=== PATIENT | male | born 1965 | race Caucasian/White ===

== ENCOUNTER 2024-02-25 22:05 | Inpatient (IN) | payer BC, SELFPAY ==
[2024-02-25] VITALS (17 sets, daily range): BP systolic 104–126; BP diastolic 62–82; BMI 30.8
[2024-02-25 18:08] LABS: % Basophils 0.5 % (0-2); % Eosinophils 2.6 % (0-6); % Immature Granulocytes 0.4 % (0-0.5); % Lymphocytes 35.7 % (20.5-51.1); % Monocytes 7.7 % (1.7-9.3); % Neutrophils 53.1 % (42.2-75.2); Absolute Eosinophils 0.2 10^3/uL (0-0.7); Absolute Lymphocytes 2.8 10^3/uL (1.2-3.4); Absolute Monocytes 0.6 10^3/uL (0.1-0.6); Absolute Neutrophils 4.2 10^3/uL (1.4-6.5); Hematocrit 40.7 % (39.0-52.0); Hemoglobin 14.4 g/dL (13.0-18.0); Mean Corp Hgb Conc. 35.4 g/dL (33.0-37.0); Mean Corpuscular Hgb 32.3 pg (27.0-31.0); Mean Corpuscular Volume 91.3 fL (80.0-94.0); Mean Platelet Volume 8.8 fL (7.4-10.4); Nucleated Red Blood Cells % 0 % (-); Platelet Count 310 10^3/uL (130-400); Red Blood Cell Count 4.46 10^6/uL (4.70-6.10); White Blood Cell Count 7.8 10^3/uL (4.8-10.8)
[2024-02-25 18:21] LABS: ALT (SGPT) 39 U/L (0-50); AST (SGOT) 30 U/L (17-59); Albumin 4.6 g/dl (3.5-5.0); Alkaline Phosphatase 65 U/L (38-126); Blood Urea Nitrogen 17 mg/dl (9-20); Calcium 9.4 mg/dl (8.4-10.2); Carbon Dioxide 24 mmol/L (22-30); Chloride 105 mmol/L (98-107); Estimated Creatinine Clearance 118 ml/min; Glucose 128 mg/dl (70-99); Potassium 4.1 mmol/L (3.5-5.1); Sodium 139 mmol/L (135-145); Total Bilirubin 0.6 mg/dl (0.2-1.3); Total Protein 7.3 g/dl (6.3-8.2); eGFR > 60.00
[2024-02-25 18:31] LABS: Troponin I < 0.012 ng/ml
--- NOTE | 2024-02-25 18:36 | ED.GENMED ---
History of Present Illness
General
Chief Complaint: Chest Pain
Source: patient and ambulance crew
Exam Limitations: none
Time Seen by Provider: 02/25/24 17:55
Travel History
Have you had any contact with someone who has COVID-19?: No
Do you have any symptoms of coronavirus? Fever > 100 degrees, chills, cough, shortness of breath, sore throat, loss of taste or smell, muscle aches, or headache?: No
History of Present Illness
History of Present Illness:
58-year-old male who presents with upper chest pain that began an hour prior to arrival while he was picking up cones at work. Patient had been given nitroglycerin prior to arrival by EMS but patient reports had no relief. Patient was also given
aspirin. Patient states he does have a history of stents and it does feel similar to prior coronary events. Patient admits that he was very diaphoretic prior to arrival. Patient denies pain in the back. Denies pain in the arms. Is on aspirin at
home and has not missed his medications.
Past History
Past History
ED Past Medical History: CAD, NIDDM and [place]
ED Past Surgical History: Cardiac
Social History
Tobacco: Non-smoker
Alcohol: Occasional
Family History
Family History: Diabetes and CAD
Phy Exam
Physical Exam
Physical Exam:
CONSTITUTIONAL Patient alert and oriented to person, place and time. Well-appearing. Vital signs reviewed.
HEAD atraumatic, normocephalic.
EYES eyelids normal to inspection, Pupils equally round and reactive to light, Extraocular muscles intact, Conjunctiva normal, Sclera normal.
NECK normal range of motion, Trachea midline, no jugular venous distention.
RESPIRATORY CHEST No respiratory distress noted, Chest expansion equal, Bilateral breath sounds clear.
CARDIOVASCULAR regular rate and rhythm, Heart sounds normal.
ABDOMEN abdomen nontender, Bowel sounds normal. No distention.
BACK normal inspection, no obvious deformities
UPPER EXTREMITY range of motion normal, Motor strength normal, no cyanosis, no edema.
LOWER EXTREMITY range of motion normal, Motor strength normal, no cyanosis, no edema.
NEURO Speech normal, No focal motor deficits, Ginette coma scale 15, Memory normal, Cranial Nerves intact to screening exam.
SKIN skin warm, dry, and normal in color.
Scores
Heart Score for Chest Pain Patients
STEMI patient?: Yes
Course
Orders/Labs/Results
Orders:
Orders
02/25/24 Dinner
Cholesterol Lowering
At Your Request: Full Participation
Cholesterol Lowering: Sodium, 2 Gram
02/25/24 17:50
CXR Port [CR Chest Portable - 1 View] Urgent
Comment:
Reason For Exam: chest pain
Reason Study Needs to be Portable: Unable to Transport
02/25/24 17:58
CMP [Comprehensive Metabolic Panel] Urgent
Complete Blood Count/With Diff Urgent
PT/INR [Prothrombin Time] Urgent
PTT Urgent
Troponin I Urgent
02/25/24 18:06
Electrocardiogram (*1) Urgent
Reason for Study: Chest Pain
EKG- Treatment ONCE
02/25/24 18:18
Heparin 5,000 units .ROUTE .STK-MED ONE
Ticagrelor [Brilinta] 180 mg .ROUTE .STK-MED ONE
02/25/24 18:20
EKG [Electrocardiogram (*1)] Urgent
Reason for Study: Chest Pain
EKG- Treatment ONCE
02/25/24 18:24
Morphine Sulfate 4 mg .ROUTE .STK-MED ONE
02/25/24 18:49
Fentanyl Citrate/Pf [Sublimaze] 100 mcg .ROUTE .STK-MED ONE
Heparin 10,000 units .ROUTE .STK-MED ONE
Heparin 1000 Units/500 ml [Heparin] 1,000 units in 500 ml .ROUTE .STK-MED
Heparin Sodium,Porcine/Ns/Pf [Heparin 2000 Units/1000 ml] 2,000 unit in 1,000 ml .ROUTE .STK-MED
Lidocaine HCl/Pf [Xylocaine-Mpf 1% Vial] 100 mg .ROUTE .STK-MED ONE
Midazolam HCl [Versed] 2 mg .ROUTE .STK-MED ONE
Nitroglycerin [Tridil] 1,500 mcg .ROUTE .STK-MED ONE
Verapamil Injectable [Isoptin/Verapamil Injection] 5 mg .ROUTE .STK-MED ONE
02/25/24 19:00
Heparin 1000 Units/500 ml [Heparin] 1,000 units in 500 ml .ROUTE .STK-MED
02/25/24 19:27
Eptifibatide [Integrilin] 20 ml .ROUTE .STK-MED
02/25/24 19:44
Midazolam HCl [Versed] 2 mg .ROUTE .STK-MED ONE
02/25/24 20:23
Heparin 1000 Units/500 ml [Heparin] 1,000 units in 500 ml .ROUTE .STK-MED
02/25/24 20:43
Fentanyl Citrate/Pf [Sublimaze] 100 mcg .ROUTE .STK-MED ONE
02/25/24 20:45
Lidocaine HCl/Pf [Xylocaine-Mpf 1% Vial] 100 mg .ROUTE .STK-MED ONE
02/25/24 20:52
Heparin 1000 Units/500 ml [Heparin] 1,000 units in 500 ml .ROUTE .STK-MED
02/25/24 21:17
Heparin 1000 Units/500 ml [Heparin] 1,000 units in 500 ml .ROUTE .STK-MED
02/25/24 21:25
Heparin 10,000 units .ROUTE .STK-MED ONE
02/25/24 21:50
Admit Patient As Directed
Co-Sign Provider:
Level of Care: Inpatient admission
Assign to:: IVU
Physician / Group: Ayla
Diagnosis: Anterior wall stemi
Reason for Hospitalization: Anterior wall stemi
Expected length of stay greater than two midnights?: Yes
ELOS- Estimated Length of Stay in days: 3
I certify the patient meets the requirements for IP care: Yes
Electrocardiogram (*1) Urgent
Reason for Study: Other
Other Reason for Exam: s/p intervention
Code Status As Directed
Resuscitation Status: Full Code
CARDIAC REHAB CONSULT Routine
Co-Sign Provider:
Type of Cardiac Rehab Referral: Outpatient
Diagnosis: STEMI
Date of Diagnosis/Surgery: [id number]
Referring Provider: Jose M Aguila
Other Referring Provider: Wesley Cheung
If not attending cardiac rehab at [place], will attend at: Other
Comment: Ramirez Regan
Activity As Directed
Activity Level: Bedrest
Comment: refer to hemostasis device used for bedrest duration, then ambulate ad joseline
Psych Rn Procedure As Directed
Cardiac Cath Procedure: percutaneous coronary intervention
Femoral Artery Hemostasis Method As Directed
Procedure performed:: Percutaneous Coronary Int
Type of femoral hemostasis method used:: Internal Closure Device
Duration of bedrest (hours):: 3
Call provider if:: hematoma present after hemostasis achieved
Head of Bed-Restrictions As Directed
Comment: may elevate head of bed 30 degrees
Intake/ Output As Directed
Frequency: Per unit guidelines
Notify MD As Directed
Notify physician if: immediately for chest pain or bleeding from access site(s)
Site Checks As Directed
Check access site for bleeding/hematoma: Yes
Comment: on arrival, Q15min x4, Q30min x2, Q1 hr x2, Q2 hr x2, Q4 hr or per
protocol
Vascular Checks As Directed
Location: distal to access site - pulse check
Frequency: Other
Comment: on arrival, Q15min x4, Q30min x2, Q1 hr x2, Q2 hr x2, Q4 hr or per protocol
Vital Signs As Directed
Frequency: Other
Additional Instructions:: on arrival, Q15min x4, Q30min x2, Q1 hr x2, Q2 hr x2, then Q4 hr or per unit
protocol
02/25/24 21:51
DX Deep Vein Thrombosis Video Routine
02/25/24 21:57
diphenhydramine-acetaminophen [Tylenol PM Extra Strength] 2 tablet PO HSPRN PRN
02/25/24 22:00
Atorvastatin [Lipitor] 40 mg PO QPM
02/25/24 23:18
Glycohemoglobin (HgbA1c) Routine
Troponin I Q6H
02/26/24 04:00
Troponin I Q6H
02/26/24 06:00
Electrocardiogram (*1) IN AM
Reason for Study: Other
Other Reason for Exam: s/p intervention
Basic Metabolic Panel IN AM
Cardiovascular Evaluation IN AM
Complete Blood Count/No Diff IN AM
02/26/24 08:00
Aspirin Chewable [Low Strength Aspirin] 81 mg PO DAILY
Carvedilol [Coreg] 3.125 mg PO BID
Ramipril [Altace] 2.5 mg PO DAILY
Ticagrelor [Brilinta] 90 mg PO BID
02/26/24 10:00
Troponin I Q6H
02/26/24 18:00
Empagliflozin [Jardiance] 10 mg PO QPM
Enoxaparin Sodium [Lovenox] 40 mg SC QPM
02/27/24 06:00
Electrocardiogram (*1) IN AM
Reason for Study: Other
Other Reason for Exam: s/p intervention
Basic Metabolic Panel IN AM
Complete Blood Count/No Diff IN AM
02/28/24 06:00
Echo 2D MMode Color/Doppler Routine
Reason for Study: Anterior wall STEMI
Cardiology Consult: Jose M Aguila
Electrocardiogram (*1) IN AM
Reason for Study: Other
Other Reason for Exam: s/p intervention
Basic Metabolic Panel IN AM
Complete Blood Count/No Diff IN AM
Abnormal Lab Results
02/25/24 02/25/24 02/25/24
17:58 19:17 19:37
RBC 4.46 L 10^6/uL
(4.70-6.10)
MCH 32.3 H pg
(27.0-31.0)
APTT 20.1 L Sec
(23.4-35.0)
Glucose 128 H mg/dl
(70-99)
POC ACT Low Range 199 H Seconds 329 H Seconds
(116-155) (116-155)
02/25/24 02/25/24 02/25/24
20:08 20:29 21:17
RBC
MCH
APTT
Glucose
POC ACT Low Range 339 H Seconds 350 H Seconds 210 H Seconds
(116-155) (116-155) (116-155)
02/25/24
21:35
RBC
MCH
APTT
Glucose
POC ACT Low Range 189 H Seconds
(116-155)
02/25/24 17:58
02/25/24 17:58
Vital Signs
Initial and Last Documented VS:
Initial Vital Signs
Pulse Resp BP Pulse Ox
70 18 109/74 95
02/25/24 17:43 02/25/24 17:43 02/25/24 17:43 02/25/24 17:43
Last Documented Vital Signs
Pulse Resp BP Pulse Ox
67 12 112/64 100
02/25/24 18:45 02/25/24 18:45 02/25/24 18:45 02/25/24 18:45
MDM/Problems Addressed
MDM/Problems Addressed:
Acute coronary syndrome
*Radiology
Radiology exam reviewed: all reviewed NAD by ED Provider
*Pulse Oximetry
Patient hypoxic: no
*EKG
Interpreted by ED Provider?: Yes
Interpretation: abnormal
Rhythm: sinus
[place]: normal axis
Ischemia: non-specific ST changes
*Apprentice Stylist Interpretation
Rate: normal
Rhythm: sinus
*Critical Care Note
Total Time (30-74mins, 75-104mins- exclusive of procedures): 40 minutes
Data Reviewed
Review of Other/Old Records Reveals: Records (Cath report from 2012 reviewed)
Source: patient
Prescriptions/Medications Considered But Not Given:
Consider nitroglycerin drip but no relief with sublingual nitroglycerin
Patient Management
Discussion with other providers: Grain Trimmer (Dr. Aguila)
Escalation/DeEscalation of care consider admission/obs:
58-year-old male who arrives with a concerning story given his history of coronary disease. EMS EKG reviewed hospital did not show ST elevation. Initial EKG here in the emergency department again did not show what concern me for ST elevation as
there were no reciprocal changes. During my evaluation his pain increased. EKG #2 and subsequently EKG #3 did show dynamic changes and STEMI alert was initiated. IV heparin, aspirin, Brilinta given.
Update Note
Update Note:
Patient presented with chest pain that was concerning in light of his history. Initial EKG by EMS does not show ST elevation. On arrival shortly after, I did repeat a second EKG as his symptoms seem to worsen a bit. Repeat EKG does look a little
more ominous. EKGs were sent to cardiology. As pain worsened a third EKG does show continuous progression of ST segment elevation hyperacute T waves. STEMI alert was called. Case was discussed with Dr. Aguila after EKG #2.
ED Attending Note
-
Portions of this chart may have been created with voice recognition software.� Occasional wrong word or��sound alike� substitutions may have occurred due to the inherent limitations of voice recognition software.
Discharge Plan
Departure
Patient Disposition: Admit
Date of Disposition: 02/25/24
Time of Disposition: 18:36
Admit to: cath lab manager
Presentation/result/management discussed w/ accepting MD/DO: cards
Discharge Problem:
ST elevation (STEMI) myocardial infarction
Interventions
Interventions:
*Risk Screen - Suicide Last Done: 02/25/24 17:43
*General Assessment Last Done: 02/25/24 17:43
*Neglect/Abuse Screening Last Done: 02/25/24 17:43
*ED COVID-19 Vaccine History Last Done: 02/25/24 17:49
*Nursing Disposition Last Done: 02/25/24 18:55
ED- Cardiac Assessment Last Done: 02/25/24 18:39
Discharge Date and Time
Discharge Date/Time: 02/25/24 18:55
[2024-02-25 18:43] LABS: APTT 20.1 Sec (23.4-35.0)
[2024-02-25 19:17] LABS: ACT-LR - POC 136 Seconds (116-155)
[2024-02-25 19:26] LABS: ACT-LR - POC 199 Seconds (116-155)
[2024-02-25 19:44] LABS: ACT-LR - POC 329 Seconds (116-155)
[2024-02-25 20:16] LABS: ACT-LR - POC 339 Seconds (116-155)
[2024-02-25 20:40] LABS: ACT-LR - POC 350 Seconds (116-155)
[2024-02-25 21:26] LABS: ACT-LR - POC 210 Seconds (116-155)
[2024-02-25 21:43] LABS: ACT-LR - POC 189 Seconds (116-155)
--- NOTE | 2024-02-25 22:09 | ITS.CL.CATH ---
Solution Designer - Catheterization
Cardiac Catheterization
Procedure Report:
LEFT HEART CATH AND CORONARY INTERVENTION
Date of Procedure: February 25, 2024
Referring: [facility] Emergency [facility]
PROCEDURES:
1. Left heart catheterization with coronary and left ventricular angiography
2. Prolonged and exceedingly difficult procedure for treatment of 95% mid LAD stenosis within the previously stented segment. Procedure was prolonged and difficult due to inability to deliver coronary equipment/balloon catheters across the culprit
stenosis. Ultimately, access was changed from radial to femoral with cannulation of the left main using an 8 Singaporean guide catheter which provided enough support to facilitate balloon delivery and ultimate placement of a 3.0 x 38 mm Jose stent that
was implanted at nominal pressures then postdilated with a 3.0 mm noncompliant balloon to 24 day
INDICATION: This is a 58-year-old diabetic gentleman with a remote history of an anterior wall myocardial infarction in 1999. The LAD was successfully stented with several stents at [facility]. In October 2013 he was admitted to [place] [facility] and underwent successful stenting of the mid LAD. The procedural note described difficulty passing equipment to the previously placed more proximal LAD stent and required balloon angioplasty of the more proximal stent and GuideLiner
support. A 3.0 x 24 mm Promus stent was ultimately delivered to the mid-distal LAD where it was implanted and postdilated with a 3.0 mm noncompliant balloon to 18 day.
The patient follows with Dr. Wesley Cheung and was last seen in his office in July 2023 and was sent to schedule follow-up within the upcoming weeks. He reports that he had been feeling very well until the evening of admission when he developed
substernal chest pressure that was reminiscent of his prior anginal symptoms. He presented to [facility] and initially became nearly chest pain-free with a rather unremarkable initial electrocardiogram. His chest pain worsened and repeat
electrocardiogram was now more suggestive of an evolving anterior wall myocardial infarction and STEMI alert was ultimately activated. His initial troponin measured less than 0.012
ACCESS: Right radial artery, 6 Singaporean sheath and eventual placement of an 8 Singaporean sheath in the right common femoral artery using ultrasound guidance and micropuncture technique
HEMODYNAMICS (mmHg):
AO (s/d, m) : 110/71
LV (s/d) : 110/10
LVEDP : 22
CORONARY FINDINGS
Dominance: Right
LEFT MAIN: Short and unobstructed
LEFT ANTERIOR DESCENDING: The LAD arises normally from the left main and runs in the anterior interventricular groove. The mid LAD beyond the first septal production trainer is stented and has a 95% stenosis in the proximal portion of the stent just beyond
the first diagonal branch with JAMEY I flow distally. There is a gap between mid LAD stents and moderate in-stent restenosis within the more distal LAD stents. The LAD beyond the stented segment has moderate diffuse coronary artery disease and the
distal vessel wraps around the apex. There is JAMEY I flow into the distal vessel.
CIRCUMFLEX: The circumflex is a medium caliber nondominant vessel supplying a large OM1 and terminating in a small OM 2
RIGHT CORONARY: The right coronary artery is a large-caliber dominant vessel with a focal 90% stenosis in the mid RCA. The remainder of the RCA has only minor luminal irregularities. The PDA and posterolateral branch are patent
VENTRICULOGRAPHY: Left ventriculography was performed in an LUO projection. The digital single-plane left ventricular ejection fraction is estimated at 35% with anterolateral and apical as well as inferoapical severe hypokinesis to akinesis
ANGIOPLASTY PROCEDURE DETAIL: Upon review of the diagnostic catheterization the decision was made to proceed with percutaneous revascularization of the high-grade stenosis in the mid LAD within the proximal portion of the prior stent from 1999.
Intravenous heparin was administered and the ACT was followed. The decision was made to administer double bolus Integrilin given the sluggish flow in the LAD and high heparin requirements in order to maintain a reasonably therapeutic ACT. The left
main was cannulated with a 6 Fr. EBU 3.75 guide catheter
A BMW guidewire was advanced across the stenosis in the mid LAD with a moderate degree of difficulty and into the distal vessel. A 2.5 x 15 mm Trek balloon was then advanced over the guidewire but could not cross the acute angulation within the
calcific neoatherosclerotic lesion in the mid LAD. A GuideLiner was advanced into the LAD and provided excellent support. Unfortunately, neither a 2.5 Trek balloon or a 1.5 x 10 mm Emerge balloon would cross. A second BMW guidewire was advanced
to the apical LAD with a moderate degree of difficulty in order to provide juan antonio wire support. Unfortunately, a 1.5 x 10 mm Emerge balloon and a 1.5 mm Material Clerk balloon would not cross distally.
Flow to the distal LAD improved with anticoagulation with mu-ism of JAMEY II-III flow. One of the BMW wires was removed. A Fine Cross microcatheter successfully crossed distally and an Extra S'port wire was advanced distally to provide
additional backup support. No balloon would cross even with excellent deep seating of the guide catheter with GuideLiner support. A Whisper wire was advanced distally to act as a juan antonio wire and still no balloon could be delivered.
Dr. Mon was consulted with concern the patient may need to go for emergent surgical revascularization. This was not felt to be a great option as the patient had received aspirin, ticagrelor, and Integrilin. Dr. Alvarez provided additional
interventional guidance / ideas.
JAMEY II-III flow was restored to the LAD and the patient was chest pain free. I elected for placement of an 8 Fr. sheath in the right common femoral artery with a last ditch attempt to deliver a balloon across the proximal LAD calcific
zoraida-arthrosclerotic plaque. An 8 Fr. XB 3.5 guide catheter cannulated the left main. I had left the 6 Fr. EBU and wire in place. The 6 Fr. guide was disengaged from the LM ostia which was then cannulated with the 8 Fr. guide. A long BMW wire was
advanced across the mid LAD stenosis. Ultimately, the decision was made to remove all prior wires and the 6 Fr guide catheter was removed. I was fortunate that the 8 Fr. guide and GuideLiner provided enough support to deliver a 1.5 mm Emerge
balloon beyond the high-grade stenosis. Serial balloon inflations were performed and was followed by balloon dilation with a 2.5 mm Trek balloon. Ultimately, we were able to deliver and implant a 3.0 x 38 mm Jose stent that was implanted at
nominal pressures. The stent was postdilated with a 3.0 mm noncompliant balloon to 24 day throughout the entirety of the stented segment with a nice angiographic result
It should be noted that door to balloon time was delayed at least 80 minutes due to inability to deliver a balloon across the fibrotic/calcific eccentric plaque in the LAD. Multiple guidewires and multiple balloon catheters were utilized from the
radial approach with eventual conversion to an 8 Singaporean guide catheter via the right common femoral artery. With persistence and a little bit of block we are able to deliver balloon catheters and a stent to the mid LAD. Fortunately, the patient
remained chest pain-free throughout most of the procedure.
RADIATION SUMMARY: Fluoro Time (min): 44.9, Dose (mGy): 1723, DAP (Gy.cm2) : 161
CONCLUSIONS
1. Complex but successful stenting of subtotally occluded calcific/neoatherosclerotic lesion in the mid LAD. Multiple balloon catheters and multiple wires were utilized with inability to cross the lesion. Ultimately, radial access was abandoned
in favor of an 8 Singaporean guide catheter via the right common femoral artery. A balloon catheter was delivered across the lesion with balloon angioplasty and ultimate stenting with a 3.0 x 38 mm [place] stent that was postdilated to 24 day with a 3.0 mm
noncompliant balloon
2. High-grade mid RCA focal stenosis
3. Ischemic cardiomyopathy with moderate left ventricular systolic dysfunction and visually estimated ejection fraction of 35%
RECOMMENDATIONS
1. Uninterrupted dual antiplatelet therapy
2. Serial troponin levels, fasting lipid profile, and hemoglobin A1c will be followed
3. Patient should have the mid right coronary artery stented prior to discharge
4. Guideline directed medical therapy for ischemic cardiomyopathy
Copy to: Dr. Wesley Cheung
[2024-02-25] MEDS: BENADRYL 50 MG PO (22:49)
[2024-02-25] MEDS: LIPITOR 40 MG PO (22:49)
--- NOTE | 2024-02-25 23:00 | PTCARENOTE ---
Received pt from organic lab worker. R femoral dsg c/d/i w/ positive pulses. R radial band on. Pt aware of activity restrictions. Reports no CP/discomfort. at bedside.
[2024-02-25 23:09] LABS: Glucose - Point of Care 171 mg/dl (70-99)
[2024-02-26] VITALS (9 sets, daily range): BP systolic 101–122; BP diastolic 63–87; BMI 31.3
--- NOTE | 2024-02-26 01:36 | PTCARENOTE ---
Pt OOB w/ RN assist. Ambulatory to BR; steady gait. Voiding appropriately. R radial band off; dressing applied c/d/i. R groin w/ moderate amt of drainage noted on dsg. VSS.
[2024-02-26 05:17] LABS: Hematocrit 38.9 % (39.0-52.0); Hemoglobin 13.6 g/dL (13.0-18.0); Mean Corpuscular Hgb 32.5 pg (27.0-31.0); Mean Corpuscular Volume 92.8 fL (80.0-94.0); Mean Platelet Volume 8.9 fL (7.4-10.4); Platelet Count 242 10^3/uL (130-400); Red Blood Cell Count 4.19 10^6/uL (4.70-6.10); White Blood Cell Count 10.9 10^3/uL (4.8-10.8)
[2024-02-26 06:28] LABS: Blood Urea Nitrogen 18 mg/dl (9-20); Calcium 8.9 mg/dl (8.4-10.2); Carbon Dioxide 23 mmol/L (22-30); Chloride 106 mmol/L (98-107); Estimated Creatinine Clearance > 125 ml/min; Glucose 106 mg/dl (70-99); HDL Cholesterol 43 mg/dl; LDL Cholesterol, Calculated 58 mg/dl; Potassium 4.1 mmol/L (3.5-5.1); Sodium 138 mmol/L (135-145); Total Cholesterol 123 mg/dl (50-199); Triglyceride 111 mg/dl (10-149); Very Low Density Lipoprotein 22 mg/dl (0-30); eGFR > 60.00
--- NOTE | 2024-02-26 07:05 | W.PN.CARDCBS ---
Addendum entered and electronically signed by Gary Person MD 02/26/24 10:37:
Patient seen, interviewed and examined by me.
No anginal symptoms.
Well-appearing, no acute distress
Regular rate and rhythm with normal S1 and S2, no S3 no S4. There is a grade 1/6 apical holosystolic murmur and no rubs. PMI is normally placed.
Lungs are clear to auscultation bilaterally without wheezes rales or rhonchi.
Abdomen soft nontender nondistended with normoactive bowel sounds
Extremities show trace pretibial edema bilaterally no clubbing or cyanosis.
Neurologic exam is grossly nonfocal.
Agree with advanced practice professionals assessment and plan as noted below.
Stable after LAD intervention yesterday. No anginal symptoms. Continue medical therapy and plan for intervention on residual RCA disease next week.
Original Note:
Today's Communication / Plan
-
Increase Coreg
Med changes and plan for RCA PCI Wednesday or Wednesday reviewed with patient
Impression / Plan
-
PCP: Dr. Itz Borrero
Cardiology: Dr. Cheung
Impression:
Chest pain and STEMI, Troponin 22 and trending
CAD
s/p AWMI and LAD PCI at [facility] 1999
mid LAD PCI at 10/2013
s/p 3.0 mm Onxy MABROSIO to mid LAD 02/25/24
residual RCA disease by cath 02/25/24
ICM EF 35% by v-gram 02/25/24
HTN
Hyperlipidemia
DM 2
Echo 11/06/20: EF 60-65%, small area of apical akinesis, no significant valve disease
Plan:
-Patient came to [facility] 02/25/24 PM with chest pain and after initial ECGs without ST elevation a 3rd ECG showed elevation and patient taken to medical lab assistant. Access was complicated and multiple guidewires and multiple balloon catheters were utilized from
the radial approach with eventual conversion to an 8 Yi guide catheter via the right common femoral artery and with persistence and a little bit of block cath team was able to deliver balloon catheters and a stent to the mid LAD. Patient
remained chest pain-free throughout most of the procedure.
-Troponin was undetectable initially and is up to 22.0 on 02/26/24 AM. Cont to trend to peak. Pain free.
-ECG stable. As noted ECG pre-hospital and initial [address] elevation, but [facility] and that 3rd ECG done at time of chest pain showed ST elevation and STEMI alert called.
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
-Patient with residual high-grade RCA disease on cath and plan is for PCI prior to discharge, could be Wednesday or Wednesday pending labs and patient condition. Patient updated with this information by me 02/26/24.
-EF was 60-65% by echo 11/06/20, but down to 35% by v-gram 02/25/24. Check echo Wednesday.
-LDL 58 and outpatient dose of atorvastatin 20 mg daily was increased to 80 mg daily. Patient says he was tolerating a higher dose of statin as an outpatient, but the dose was lowered because his LDL was controlled. Reviewed the plan for high dose
statin therapy and patient is agreeable.
-Outpatient dose of Lopressor changed to Coreg 3.125 mg BID, will increase dose to 6.25 mg BID 02/26/24
-Outpatient dose of ramipril lowered to 2.5 mg daily. Follow BP and Cre, increase dose as able this admission
-Outpatient dose of Jardiance 10 mg daily continued
-HgbAc1 pending. Patient was taking Jardiance, glimepiride 4 mg BID and pioglitazone/metformin 15/500 mg BID prior to admission. Glimepirdie, pioglitazone and metformin on hold.Accu checks and insulin coverage ordered by me 02/26/24 and will ask DM [employer] [place]
to see on Wednesday.
-Offered to call patient's while in the room with patient and he says that he will relay information 02/26/24
HPI: This is a 58-year-old diabetic gentleman with a remote history of an anterior wall myocardial infarction in 1999. The LAD was successfully stented with several stents at [facility]. In October 2013 he was admitted to [place] [facility] and underwent successful stenting of the mid LAD. The procedural note described difficulty passing equipment to the previously placed more proximal LAD stent and required balloon angioplasty of the more proximal stent and GuideLiner
support. A 3.0 x 24 mm Promus stent was ultimately delivered to the mid-distal LAD where it was implanted and postdilated with a 3.0 mm noncompliant balloon to 18 day. The patient follows with Dr. Wesley Cheung and was last seen in his office in
July 2023 and was sent to schedule follow-up within the upcoming weeks. He reports that he had been feeling very well until the evening of admission when he developed substernal chest pressure that was reminiscent of his prior anginal
symptoms. He presented to [facility] and initially became nearly chest pain-free with a rather unremarkable initial electrocardiogram. His chest pain worsened and repeat electrocardiogram was now more suggestive of an evolving anterior
wall myocardial infarction and STEMI alert was ultimately activated. His initial troponin measured less than 0.012
Progress Note - Product Development Carpenter
Subjective
Date of Service: February 26, 2024
He feels well, no chest pain
Objective
Labs:
02/26/24 05:06
02/26/24 05:06
Labs
Hgb 13.6 g/dL (13.0-18.0) 02/26/24 05:06
Hct 38.9 % (39.0-52.0) L 02/26/24 05:06
Plt Count 242 10^3/uL (130-400) D 02/26/24 05:06
PT 13.0 Sec (11.4-14.6) 02/25/24 17:58
INR 1.00 02/25/24 17:58
APTT 20.1 Sec (23.4-35.0) L 02/25/24 17:58
Sodium 138 mmol/L (135-145) 02/26/24 05:06
Potassium 4.1 mmol/L (3.5-5.1) 02/26/24 05:06
BUN 18 mg/dl (9-20) 02/26/24 05:06
Creatinine 0.7 mg/dL (0.7-1.3) 02/26/24 05:06
Glucose 106 mg/dl (70-99) H 02/26/24 05:06
Troponins
02/25/24 02/25/24 02/26/24
17:58 23:18 05:06
Troponin I < 0.012 18.600 H* D 22.000 H*
Vital Signs and I&O:
Vital Signs
Temp Pulse Resp BP Pulse Ox
99 F 91 16 117/69 96
02/26/24 05:00 02/26/24 05:15 02/26/24 05:00 02/26/24 05:00 02/26/24 05:00
Vital Signs
Temp Pulse Resp BP Pulse Ox
99 F 91 16 117/69 96
02/26/24 05:00 02/26/24 05:15 02/26/24 05:00 02/26/24 05:00 02/26/24 05:00
Intake & Output
02/24/24 02/25/24 02/26/24 02/27/24
06:59 06:59 06:59 06:59
Intake Total 240 / 240
Output Total 250 / 250
Balance -10 / -10
Physical Exam
Physical Exam
GEN: NAD. AAOx3
HEENT: EOMI
LUNGS: CTA B/L
CV: Reg, no murmur
ABD: soft, BS+
EXT: No edema B/L
NEURO: Gross non-focal
SKIN: No rash
[2024-02-26] MEDS: BRILINTA 90 MG PO ×2 (08:37→19:58)
[2024-02-26] MEDS: LOW STRENGTH ASPIRIN 81 MG PO (08:37)
[2024-02-26] MEDS: ALTACE 2.5 MG PO (08:37)
[2024-02-26] MEDS: COREG 3.125 MG PO (08:37)
--- NOTE | 2024-02-26 10:38 | PTCARENOTE ---
Assumed care of pt from night RN. Pt received awake and alert, Ox3. CSS, CM shows NSR 70-80, POX96% on RA. Right radial and right femoral sites remain CDI with good CMS throughout limbs. Pt denies any pain or discomfort. Plan for PCI of RCA
Wednesday or Wednesday.
[2024-02-26 11:05] LABS: Glycohemoglobin (HgbA1c) 6.8 % (4.0-5.6)
[2024-02-26] MEDS: LOVENOX 40 MG SC (17:20)
[2024-02-26] MEDS: JARDIANCE 10 MG PO (17:21)
[2024-02-26] MEDS: LIPITOR 40 MG PO (17:21)
[2024-02-26] MEDS: COREG 6.25 MG PO (19:58)
[2024-02-26] MEDS: COLACE 100 MG PO (21:02)
[2024-02-26] MEDS: TYLENOL 1000 MG PO (21:52)
[2024-02-26] MEDS: BENADRYL 50 MG PO (21:52)
--- NOTE | 2024-02-26 22:51 | PTCARENOTE ---
11 beat run of VTACH- pt asymptomatic seated in bed- no complaints.
--- NOTE | 2024-02-26 22:52 | PTCARENOTE ---
R radial site CDI- R femoral site dressing- with drainage present- pt unwilling to allow this RN to change it at this time. POC discussed- pt verbalized understaging. SR on the monitor. ambulating as a self in the room
[2024-02-27 05:03] VITALS: BP 94/61
[2024-02-27 05:36] LABS: Hemoglobin 14.2 g/dL (13.0-18.0); Mean Corp Hgb Conc. 35.5 g/dL (33.0-37.0); Mean Corpuscular Hgb 32.6 pg (27.0-31.0); Platelet Count 252 10^3/uL (130-400); Red Blood Cell Count 4.35 10^6/uL (4.70-6.10); Red Cell Dist. Width 12.1 % (11.5-14.5); White Blood Cell Count 8.6 10^3/uL (4.8-10.8)
[2024-02-27 06:00] LABS: Blood Urea Nitrogen 17 mg/dl (9-20); Carbon Dioxide 26 mmol/L (22-30); Chloride 105 mmol/L (98-107); Estimated Creatinine Clearance 119 ml/min; Glucose 111 mg/dl (70-99); Potassium 4.3 mmol/L (3.5-5.1); Sodium 137 mmol/L (135-145); eGFR > 60.00
[2024-02-27 06:56] VITALS: BP 110/61
[2024-02-27] MEDS: LOW STRENGTH ASPIRIN 81 MG PO (08:14)
[2024-02-27] MEDS: ALTACE 2.5 MG PO (08:14)
[2024-02-27] MEDS: COREG 6.25 MG PO ×2 (08:14→19:44)
[2024-02-27] MEDS: BRILINTA 90 MG PO ×2 (08:15→19:44)
--- NOTE | 2024-02-27 09:37 | W.PN.CARDCBS ---
Today's Communication / Plan
-
N.p.o. after midnight for likely intervention on residual RCA disease tomorrow
Impression / Plan
-
PCP: Dr. Itz Borrero
Cardiology: Dr. Cheung
Impression:
Chest pain and STEMI, Troponin 22 and trending
CAD
s/p AWMI and LAD PCI at [facility] 1999
mid LAD PCI at 10/2013
s/p 3.0 mm Onxy AMBROSIO to mid LAD 02/25/24
residual RCA disease by cath 02/25/24
ICM EF 35% by v-gram 02/25/24
HTN
Hyperlipidemia
DM 2
Echo 11/06/20: EF 60-65%, small area of apical akinesis, no significant valve disease
ICM EF 35% by v-gram 02/25/24
Plan:
-Presented with anterior ST segment elevation myocardial infarction February 25, 2024
Underwent complex PCI and drug-eluting stent to the mid LAD
There is residual RCA disease which is planned for staged intervention either Wednesday or Wednesday of this week
Ventriculography at time of his AL and intervention showed reduced LVEF of 35%
Troponin peaked at 22 and has since been declining
He has been chest pain-free
Echocardiogram planned for Wednesday
Maintain aspirin, Brilinta, statin, carvedilol, ramipril
He has been maintained on outpatient Jardiance dosing 10 mg daily
-Diabetes mellitus. HgbAc1 is elevated at 6.8 this hospital stay. Patient was taking Jardiance, glimepiride 4 mg BID and pioglitazone/metformin 15/500 mg BID prior to admission.
Glimepirdie, pioglitazone and metformin on hold.maintaining Jardiance. Accu checks and insulin coverage ordered 02/26/24 and will ask DM TILER'S ASSISTANT to see on Wednesday.
-Hypertension is well-controlled on current medical therapy, continue
-Maintain statin for dyslipidemia. Laboratory from February 26, 2024 shows total cholesterol 123, LDL 58, VLDL 22, HDL 43 and triglycerides 111
Discussed with patient and with nursing. All questions answered.
HPI: This is a 58-year-old diabetic gentleman with a remote history of an anterior wall myocardial infarction in 1999. The LAD was successfully stented with several stents at [facility]. In October 2013 he was admitted to [place] [facility] and underwent successful stenting of the mid LAD. The procedural note described difficulty passing equipment to the previously placed more proximal LAD stent and required balloon angioplasty of the more proximal stent and GuideLiner
support. A 3.0 x 24 mm Promus stent was ultimately delivered to the mid-distal LAD where it was implanted and postdilated with a 3.0 mm noncompliant balloon to 18 day. The patient follows with Dr. Wesley Cheung and was last seen in his office in
July 2023 and was sent to schedule follow-up within the upcoming weeks. He reports that he had been feeling very well until the evening of admission when he developed substernal chest pressure that was reminiscent of his prior anginal
symptoms. He presented to [facility] and initially became nearly chest pain-free with a rather unremarkable initial electrocardiogram. His chest pain worsened and repeat electrocardiogram was now more suggestive of an evolving anterior
wall myocardial infarction and STEMI alert was ultimately activated. His initial troponin measured less than 0.012
Progress Note - Product Inspection Supervisor
Subjective
Date of Service: February 27, 2024
He tells me he feels great this morning. No chest pain shortness of breath palpitations dizziness
Total Time Spent with Patient (in minutes): 51
Objective
Labs:
02/27/24 05:14
02/27/24 05:14
Labs
Hgb 14.2 g/dL (13.0-18.0) 02/27/24 05:14
Hct 40.0 % (39.0-52.0) 02/27/24 05:14
Plt Count 252 10^3/uL (130-400) 02/27/24 05:14
PT 13.0 Sec (11.4-14.6) 02/25/24 17:58
INR 1.00 02/25/24 17:58
APTT 20.1 Sec (23.4-35.0) L 02/25/24 17:58
Sodium 137 mmol/L (135-145) 02/27/24 05:14
Potassium 4.3 mmol/L (3.5-5.1) 02/27/24 05:14
BUN 17 mg/dl (9-20) 02/27/24 05:14
Creatinine 0.8 mg/dL (0.7-1.3) 02/27/24 05:14
Glucose 111 mg/dl (70-99) H 02/27/24 05:14
Troponins
02/25/24 02/25/24 02/26/24
17:58 23:18 05:06
Troponin I < 0.012 18.600 H* D 22.000 H*
02/26/24 02/27/24
10:32 05:14
Troponin I 17.900 H* 8.560 H*
Vital Signs and I&O:
Vital Signs
Temp Pulse Resp BP Pulse Ox
98.0 F 74 18 110/61 96
02/27/24 06:56 02/27/24 07:45 02/27/24 06:56 02/27/24 06:56 02/27/24 06:56
Vital Signs
Temp Pulse Resp BP Pulse Ox
98.0 F 74 18 110/61 96
02/27/24 06:56 02/27/24 07:45 02/27/24 06:56 02/27/24 06:56 02/27/24 06:56
Intake & Output
02/25/24 02/26/24 02/27/24 02/28/24
06:59 06:59 06:59 06:59
Intake Total 240 / 240 480 / 480
Output Total 250 / 250
Balance -10 / -10 480 / 480
Physical Exam
Physical Exam
Well-appearing, no acute distress sitting in chair smiling
Heart is regular rate and rhythm with normal S1 and S2, no S3 no S4 is grade 1/6 apical holosystolic murmur no rubs. PMI is normally placed
Lungs are clear to auscultation bilaterally with no wheezing rales or rhonchi
Abdomen soft nontender nondistended with normoactive bowel sounds
Extremities show no clubbing cyanosis or edema
Neurologically is nonfocal
--- NOTE | 2024-02-27 09:38 | PTCARENOTE ---
Assumed care of pt from night RN. Pt received awake and alert, ambulating in room. VSS, CM shows NSR 70-80's, POX 96% on RA. Pt denies any pain or discomfort. Awaiting Echo tomorrow, and High Risk PCI Wednesday or Wednesday.
[2024-02-27 10:51] VITALS: BP 142/80
[2024-02-27 15:27] VITALS: BP 140/75
[2024-02-27] MEDS: LIPITOR 40 MG PO (17:48)
[2024-02-27] MEDS: LOVENOX 40 MG SC (17:49)
[2024-02-27] MEDS: JARDIANCE 10 MG PO (17:49)
[2024-02-27 19:41] VITALS: BP 121/72
[2024-02-27] MEDS: COLACE 100 MG PO (19:44)
[2024-02-27 22:31] VITALS: BP 102/59
[2024-02-27] MEDS: TYLENOL 1000 MG PO (22:34)
[2024-02-27] MEDS: BENADRYL 50 MG PO (22:34)
[2024-02-27 22:39] LABS: Glucose - Point of Care 160 mg/dl (70-99)
--- NOTE | 2024-02-27 22:48 | PTCARENOTE ---
Assumed care of patient at change of shift. Ambulating self in room. Patient AAOx3, VSS, and denies any chest pain or discomfort. Tele monitor shows SR w/ HR in the 70-80's at rest. Patient aware of NPO status at midnight for poss cath tomorrow.
Right radial and right groin GISEL. Call quiros in reach.
[2024-02-28] VITALS (12 sets, daily range): BP systolic 93–116; BP diastolic 57–76
[2024-02-28 04:36] LABS: Hematocrit 41.5 % (39.0-52.0); Hemoglobin 14.6 g/dL (13.0-18.0); Mean Corp Hgb Conc. 35.2 g/dL (33.0-37.0); Mean Corpuscular Hgb 32.2 pg (27.0-31.0); Mean Corpuscular Volume 91.6 fL (80.0-94.0); Mean Platelet Volume 8.9 fL (7.4-10.4); Platelet Count 290 10^3/uL (130-400); Red Blood Cell Count 4.53 10^6/uL (4.70-6.10); Red Cell Dist. Width 12.1 % (11.5-14.5)
[2024-02-28 05:02] LABS: Blood Urea Nitrogen 24 mg/dl (9-20); Calcium 9.2 mg/dl (8.4-10.2); Carbon Dioxide 24 mmol/L (22-30); Chloride 104 mmol/L (98-107); Estimated Creatinine Clearance 105 ml/min; Glucose 111 mg/dl (70-99); Potassium 4.2 mmol/L (3.5-5.1); Sodium 137 mmol/L (135-145); eGFR > 60.00
[2024-02-28 08:01] LABS: Glucose - Point of Care 118 mg/dl (70-99)
[2024-02-28] MEDS: BRILINTA 90 MG PO (08:26)
[2024-02-28] MEDS: COREG 6.25 MG PO (08:27)
[2024-02-28] MEDS: ALTACE 2.5 MG PO (08:27)
[2024-02-28] MEDS: LOW STRENGTH ASPIRIN 81 MG PO (08:27)
[2024-02-28] MEDS: FLUSH (NSS) 1 FLUSH IV (08:28)
--- NOTE | 2024-02-28 10:13 | PTCARENOTE ---
Received patient this morning oob in his room. Denies any chest pain or sob. NPO for the computer lab assistant today, Dr. Aguila to see patient and discuss plan.
--- NOTE | 2024-02-28 10:16 | CM ---
Addendum entered by Maureen Cruz 02/28/24 13:52:
He is agreeable to going to [facility] on [address] for the 15 day supply. and they to go to [facility] to get the other script.
Addendum entered by Maureen Cruz 02/28/24 13:28:
Telephone call to [facility] on [address] has fifteen day supply, The [facility] [place] does not have Brilibta in stock, [facility] does not have Brilinta in stock and [facility] in [place] does not have Brilinta 90 mg in stock.
Original Note:
Reviewed chart. Met with Mr. Wharton to review discharge plans. He states prior to admission he resides with his spouse and two sons in a spilt level home with six steps to enter. He states he has six steps to get to the lower level. He states
prior to admission he was independent with ambulation and adls. He states he mckeon not have any DME in the home. He states he has a prescription plan and uses [facility] and [facility] mail order. Telephone call to [facility],([phone]) t0
check on co-pay for Brilinta 90 mg po bid. His co-pay for Brilinta is $25.00 a month. He has commercial insurance and can use the $5.00 coupon. Placed the coupon in his red discharge folder. Telephone call to [facility] to check on Brilinta 90
mg po in stock. [facility] does not have it in stock. Can order it today and can get in one -two days. Medical work-up in progress. The discharge plan is to return home with his spouse and sons when medically stable.
[2024-02-28 11:22] LABS: ACT-LR - POC 248 Seconds (116-155)
[2024-02-28 11:47] LABS: ACT-LR - POC 253 Seconds (116-155)
--- NOTE | 2024-02-28 12:08 | ITS.CL.CATH ---
Melt House Drag Operator - Catheterization
Cardiac Catheterization
Procedure Report:
ANGIOPLASTY REPORT
Date of Procedure: February 28, 2024
Referring: Dr. Wesley Cheung
INDICATIONS: Staged intervention following anterior wall myocardial infarction
PROCEDURES:
1. Successful stenting of the mid right coronary artery with a 4.0 x 23 mm Xience stent that was postdilated with a 4.5 mm noncompliant balloon
ACCESS: Right radial artery, 6 Syriac sheath using ultrasound guidance
ANGIOPLASTY REPORT: Informed consent was obtained. Patient arrived to the catheterization laboratory on background therapy of aspirin and ticagrelor given recent LAD stent. He returns today for staged coronary intervention of a focal 90% mid RCA
stenosis. Arterial access was obtained and a 6 Syriac sheath was inserted. Heparin, 10,000 units, was administered and the ACT was followed throughout the procedure.
The origin of the right coronary artery was cannulated with a 6 Syriac JR4 guiding catheter and a BMW guidewire across the stenosis in the mid RCA with no significant difficulty. The tip of the wire was advanced into the distal vessel. Balloon
predilation was performed with a 2.5 x 12 mm Trek balloon and was followed by placement of a 4.0 x 23 mm Xience stent that was implanted at nominal pressures. The stent was postdilated to 14 day with a 4.5 mm noncompliant balloon with a nice
angiographic result
COMPLICATIONS: None
RADIATION SUMMARY: Fluoro Time (min): 5.2, Dose (mGy): 262, DAP (Gy.cm2) : 14.2
CONCLUSION
1. Successful stenting of the mid right coronary artery with a 4.0 x 23 mm Xience stent that was postdilated with a 4.5 mm noncompliant balloon
RECOMMENDATIONS
1. Uninterrupted dual antiplatelet therapy potentially forever given multiple LAD stents and septal restenosis with difficult intervention of the LAD
2. Continued risk factor modification
Copy to: Dr. Wesley Cheung
[2024-02-28 12:12] LABS: Glucose - Point of Care 117 mg/dl (70-99)
[2024-02-28] MEDS: NSS 1000 IV (12:13)
--- NOTE | 2024-02-28 12:22 | PTCARENOTE ---
Patient returned from microbiology laboratory manager after successful stenting of RCA via R radial artery. Radial band in place, radial pulse palpable, no signs of bleeding or hematoma, pulse ox 96% on RH. Patient denies any pain or discomfort. Post EKG done, reviewed
post cath restrictions. Monitoring VS, patient is ordering lunch, call quiros within reach.
--- NOTE | 2024-02-28 13:01 | PTCARENOTE ---
Patient attempted to order lunch, wanted chicken parm and chicken noodle soup and was told by dietary he was over with his cholesterol. Patient became very upset and hung up with dietary. I telephoned dietary to see if they would come speak with
him, that he had been NPO since last night however the patient did not want to see them. I offered to order him something but he refused, said he will wait till his brings him something in.
--- NOTE | 2024-02-28 16:32 | W.PN.UPDATE ---
Addendum entered and electronically signed by Brandi Meneses PA-C 02/28/24 16:53:
[id number]
Original Note:
Update Note
Progress Note Update
Patient seen this afternoon post staged intervention of RCA. R radial site is stable with no bleeding or swelling. He is feeling well and has been ambulating around the unit without symptoms. Follow up has been arranged w/ his primary rand butting machine operator.
Discussed medication changes and prescriptions have been sent. He is stable for discharge at this time.
[2024-02-28 16:50] LABS: Glucose - Point of Care 99 mg/dl (70-99)
[2024-02-28] MEDS: JARDIANCE 10 MG PO (17:01)
[2024-02-28] MEDS: LOVENOX 40 MG SC (17:01)
[2024-02-28] MEDS: LIPITOR 40 MG PO (17:01)
--- NOTE | 2024-02-28 17:50 | W.PN.UPDATE ---
Update Note
Progress Note Update
Initially felt echocardiogram revealed echodensity consistent with thrombus. Reviewed with colleagues and do not feel there is thrombus. If clinically indicated could consider repeating echo as an outpatient with [facility]. Patient stable for
discharge
[2024-02-28 19:08] LABS: Hepatitis C Antibody Negative (Negative)
--- NOTE | 2024-02-28 19:23 | PTCARENOTE ---
Reviewed discharge instructions with the patient and he states his understanding. Patient ambulated in the [place] this afternoon, feels well, denies any pain and VSS. Right wrist dressing falling off and changed, no signs of bleeding or hematoma with
a strong radial pulse. Patient discharged home with his .
--- NOTE | 2024-03-01 14:38 | W.DS.TRANS ---
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
-
Discharge Instructions:
Discharge Diagnosis/Procedures STEMI, s/p angioplasty and stent to Left
Anterior Descending artery (02/25/24)
s/p angioplasty and stent to Right Coronary
artery (02/28/24)
Diet Low Cholesterol,Diabetic, Carb Controlled
Driving Restrictions No driving for 24 hours
Other Services Cardiac Rehab
Instructions:
Stand-Alone Forms: DC Instructions- Cath/EP Lab
Changes to Home Medications: Yes
Discharge Medications:
DC Medications w/original date entered in [facility]
multivitamin with folic acid 400 mcg tablet (Tab-A-Vickey) 1 tab PO DAILY Supplement 04/17/11
ramipril 5 mg capsule 5 mg PO DAILY Blood pressure 04/17/11
glimepiride 1 mg tablet 4 mg PO BID@0800,1700 Diabetes 09/30/13
B-complex with vitamin C 1 cap PO DAILY Supplement 12/26/20
Beet Root Capsules 1 cap PO DAILY Supplement 02/25/24
cinnamon bark 500 mg capsule (Cinnamon) 500 mg PO DAILY Supplement 02/25/24
coQ10 (ubiquinol) 100 mg capsule 100 mg PO DAILY Supplement 02/25/24
diphenhydramine 25 mg-acetaminophen 500 mg tablet (Tylenol PM Extra Strength) 2 tab PO HSPRN PRN sleep 02/25/24
empagliflozin 10 mg tablet (Jardiance) 10 mg PO QPM Diabetes 02/25/24
levocetirizine 5 mg tablet (Xyzal) 5 mg PO HSPRN PRN allergies 02/25/24
pioglitazone 15 mg-metformin 500 mg tablet 1 tab PO BID Diabetes 02/25/24
aspirin 81 mg tablet,delayed release 81 mg PO DAILY Blood Clot Prevention/Tx 02/26/24
atorvastatin 40 mg tablet 40 mg PO QPM #30 tabs 02/28/24
carvedilol 6.25 mg tablet 6.25 mg PO BID #60 tabs 02/28/24
ticagrelor 90 mg tablet (Brilinta) 90 mg PO BID Heart disease/condition #60 tabs 02/28/24
Home Medication Changes
Lipitor dose is increased.
Brilinta is new
Carvedilol is new.
Metoprolol stopped.
Pioglitazone/metformin is on hold until 03/01/2024.
Pending Results: No
[2024-03-06 15:44] LABS: ACT-LR - POC > 397 Seconds (116-155)
== END 2024-02-28 19:25 | disposition home or self-care (01) | DRG 321 ==
LOC: IVU 22:05
PROVIDERS: Physician Assistant Medical; ADMITTING PHYSICIAN Internal Medicine Interventional Cardiology; EMERGENCY PHYSICIAN Emergency Medicine; FAMILY PHYSICIAN Family Medicine
PROC: 027034Z Dilation of Coronary Artery, One Artery with Drug-eluting Intraluminal Device, Percutaneous Approach (ICD-10-PCS; 2024-02-25)
PROC: 4A023N7 Measurement of Cardiac Sampling and Pressure, Left Heart, Percutaneous Approach (ICD-10-PCS; 2024-02-25)
PROC: B2151ZZ Fluoroscopy of Left Heart using Low Osmolar Contrast (ICD-10-PCS; 2024-02-25)
PROC: B2111ZZ Fluoroscopy of Multiple Coronary Arteries using Low Osmolar Contrast (ICD-10-PCS; 2024-02-25)
DX: T82.855A Stenosis of coronary artery stent, initial encounter (principal); I21.09 ST elevation (STEMI) myocardial infarction involving other coronary artery of anterior wall; E11.9 Type 2 diabetes mellitus without complications; I25.10 Atherosclerotic heart disease of native coronary artery without angina pectoris; I11.9 Hypertensive heart disease without heart failure; E78.5 Hyperlipidemia, unspecified; I25.5 Ischemic cardiomyopathy; Y71.2 Prosthetic and other implants, materials and accessory cardiovascular devices associated with adverse incidents; Y92.9 Unspecified place or not applicable; Y84.0 Cardiac catheterization as the cause of abnormal reaction of the patient, or of later complication, without mention of misadventure at the time of the procedure; Z79.82 Long term (current) use of aspirin; Z95.5 Presence of coronary angioplasty implant and graft; I25.2 Old myocardial infarction; Z79.84 Long term (current) use of oral hypoglycemic drugs; Z82.49 Family history of ischemic heart disease and other diseases of the circulatory system
CPT/HCPCS: 71045; 80048; 80053; 80061; 82962; 83036; 84484; 85025; 85027; 85347; 85610; 85730; 86803; 93005; 93306; 93458; 96374; 99291; C1725; C1760; C1769; C1874; C1887; C1894; C9600; C9606; J1327; Q9967

== ENCOUNTER 2024-03-20 09:58 | Outpatient (RCR) | payer BC, SELFPAY ==
[2024-03-15 10:57] LABS: Glucose - Point of Care 109 mg/dl (70-99)
[2024-03-15 11:47] LABS: Glucose - Point of Care 110 mg/dl (70-99)
[2024-03-20 09:25] LABS: Glucose - Point of Care 115 mg/dl (70-99)
[2024-03-20 10:22] LABS: Glucose - Point of Care 93 mg/dl (70-99)
== END 2024-03-20 23:59 | disposition home or self-care (01) ==
LOC: CRHB 09:58
PROVIDERS: ATTENDING PHYSICIAN Internal Medicine Cardiovascular Disease
DX: I25.10 Atherosclerotic heart disease of native coronary artery without angina pectoris (principal); Z95.5 Presence of coronary angioplasty implant and graft; I21.01 ST elevation (STEMI) myocardial infarction involving left main coronary artery
CPT/HCPCS: 82962; 93797; 93798

== ENCOUNTER 2024-04-19 09:49 | Outpatient (RCR) | payer BC, SELFPAY ==
[2024-03-22 09:25] LABS: Glucose - Point of Care 108 mg/dl (70-99)
[2024-03-22 10:19] LABS: Glucose - Point of Care 71 mg/dl (70-99)
[2024-03-22 10:40] LABS: Glucose - Point of Care 112 mg/dl (70-99)
[2024-03-27 09:21] LABS: Glucose - Point of Care 145 mg/dl (70-99)
[2024-03-27 10:10] LABS: Glucose - Point of Care 87 mg/dl (70-99)
[2024-03-29 09:19] LABS: Glucose - Point of Care 106 mg/dl (70-99)
[2024-03-29 10:06] LABS: Glucose - Point of Care 95 mg/dl (70-99)
[2024-03-31 09:21] LABS: Glucose - Point of Care 129 mg/dl (70-99)
[2024-03-31 10:15] LABS: Glucose - Point of Care 84 mg/dl (70-99)
[2024-04-05 09:21] LABS: Glucose - Point of Care 99 mg/dl (70-99)
[2024-04-05 10:14] LABS: Glucose - Point of Care 86 mg/dl (70-99)
[2024-04-05 10:27] LABS: Glucose - Point of Care 144 mg/dl (70-99)
[2024-04-10 09:16] LABS: Glucose - Point of Care 150 mg/dl (70-99)
[2024-04-10 10:15] LABS: Glucose - Point of Care 101 mg/dl (70-99)
[2024-04-19 09:18] LABS: Glucose - Point of Care 134 mg/dl (70-99)
[2024-04-19 10:11] LABS: Glucose - Point of Care 107 mg/dl (70-99)
== END 2024-04-19 23:59 | disposition home or self-care (01) ==
LOC: CRHB 09:49
PROVIDERS: ATTENDING PHYSICIAN Internal Medicine Cardiovascular Disease
DX: I25.10 Atherosclerotic heart disease of native coronary artery without angina pectoris (principal); Z95.5 Presence of coronary angioplasty implant and graft
CPT/HCPCS: 82962; 93797; 93798; G0422; G0423

== ENCOUNTER → 2024-09-15 15:20 | Outpatient (REF) | payer BC, SELFPAY | LOC: HWRAD 15:20 | PROVIDERS: ATTENDING PHYSICIAN Otolaryngology; FAMILY PHYSICIAN Family Medicine | DX: J32.9 Chronic sinusitis, unspecified (principal) | CPT/HCPCS: 70486 ==